=== PATIENT | female | born 1980 | race African-American/Black ===

== ENCOUNTER 2016-10-03 11:01 | Emergency (ER) | payer OTHER ==
[2016-10-03 11:05] VITALS: BP 116/70; PULSE 72; TEMP 98; BMI 32.0
[2016-10-03] MEDS ORDERED: KETOROLAC TROMETHAMINE 60 MG/2 ML VIAL IM ONE (12:09)
[2016-10-03] MEDS ORDERED: OXYCODONE/APAP 5/325MG COMBO TABLET PO ONE (12:09)
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
[2016-10-03] MEDS ORDERED: KETOROLAC TROMETHAMINE 60 MG/2 ML VIAL ONE (12:17)
[2016-10-03] MEDS ORDERED: OXYCODONE/APAP 5/325MG COMBO TABLET ONE (12:18)
== END 2016-10-03 12:27 | disposition home or self-care (01) ==
LOC: JERFT 11:01
PROC: 3E0233Z Introduction of Anti-inflammatory into Muscle, Percutaneous Approach (ICD-10-PCS; principal; 2016-10-03)
DX: M54.6 Pain in thoracic spine (principal); G89.29 Other chronic pain; J45.909 Unspecified asthma, uncomplicated; I10 Essential (primary) hypertension
CPT/HCPCS: 96372; 99281-25